=== PATIENT | female | born 1960 | race Caucasian/White ===

== ENCOUNTER → 2016-07-28 | Outpatient (CLI) | payer BC ==
[~2016-07-28] MED LIST: ASP81CT PO; ATR20T PO; GLMP2T PO; HYDR-34 PO; LOSA100T7 PO; METO50TA7 PO; MTF500T PO; NIA500ERT PO; TELM40T PO
--- OUTSIDE RECORDS SUMMARY | 2016-07-28 07:14 | XMS REPORT | Continuity of Care Document ---
Author Author [facility] Organization [facility] Address Unknown Phone Unavailable Allergies Active Description Code Type Severity Reaction Onset Reported/Identified Relationship to Patient Clinical Status Yes No Known Drug Allergies [id number] Drug Allergy Unknown N/ A 03/06/2008 Medications Problems Date Dx Coded Attending Type Code Diagnosis Diagnosed By 10/14/2010 Ot 250.00 10/14/2010 Ot 272.4 10/14/2010 Ot 414.01 10/14/2010 Ot 427.81 10/14/2010 Ot 786.59 10/14/2010 Ot V15.1 10/14/2010 Ot V45.81 10/14/2010 Ot V58.66 10/14/2010 Ot V58.69 10/14/2010 Ot V85.33 11/07/2010 Ot 211.3 11/07/2010 Ot 562.10 11/07/2010 Ot V16.0 11/07/2010 Ot V76.51 06/02/2012 Ot 250.00 DIAB ALTAGRACIA WO COMPL, TYPE II OR UNSPEC TY 06/02/2012 Ot 355.3 LAT POPLITEAL NERVE LES 06/02/2012 Ot 726.91 EXOSTOSIS, SITE NOS 06/04/2014 Ot V76.12 06/04/2014 Ot V76.12 06/04/2014 Ot 414.01 06/04/2014 Ot 786.50 06/04/2014 Ot V58.66 06/04/2014 Ot V58.69 06/04/2014 Ot 715.37 06/04/2014 Ot V76.12 06/04/2014 Ot V76.12 06/04/2014 Ot 727.43 06/04/2014 Ot 733.90 06/04/2014 Ot V72.84 06/04/2014 Ot V74.8 06/04/2014 PHU AJ, REGINA Guerra Ot V76.12 06/04/2014 PHU AJ, REGINA Guerra Ot V76.12 12/25/2014 PHU AJ, REGINA Guerra Ot 793.80 02/05/2015 REGINA BAY MD Ot 793.80 05/26/2015 Ot V76.12 05/26/2015 Ot 414.01 05/26/2015 Ot 786.50 05/26/2015 Ot V58.66 05/26/2015 Ot V58.69 05/26/2015 Ot 715.37 05/26/2015 Ot V76.12 05/26/2015 Ot V76.12 05/26/2015 Ot 727.43 05/26/2015 Ot 733.90 05/26/2015 Ot V72.84 05/26/2015 Ot V74.8 05/26/2015 PHU AJ, REGINA Guerra Ot V76.12 05/26/2015 PHU AJ, REGINA Guerra Ot V76.12 05/26/2015 PHU AJ, REGINA Guerra Ot 793.89 05/26/2015 ANAY AJ FACC, ALI FACP CCDS Ot 250.00 05/26/2015 ANAY AJ FACC, ALI FACP CCDS Ot 272.4 05/26/2015 ANAY AJ FACC, ALI FACP CCDS Ot 414.00 05/26/2015 ANAY AJ FACC, ALI FACP CCDS Ot 427.89 05/26/2015 ANAY AJ FACC, ALI FACP CCDS Ot 433.10 05/26/2015 ANAY AJ FACC, ALI FACP CCDS Ot V58.69 05/26/2015 PHU AJ, REGINA Guerra Ot 793.80 05/26/2015 Ot V76.12 05/26/2015 Ot 414.01 05/26/2015 Ot 786.50 05/26/2015 Ot V58.66 05/26/2015 Ot V58.69 05/26/2015 Ot 715.37 05/26/2015 Ot V76.12 05/26/2015 Ot V76.12 05/26/2015 Ot 727.43 05/26/2015 Ot 733.90 05/26/2015 Ot V72.84 05/26/2015 Ot V74.8 05/26/2015 PHU AJ, REGINA Guerra Ot V76.12 05/26/2015 PHU AJ, REGINA Guerra Ot V76.12 05/26/2015 PHU AJ, REGINA Guerra Ot 793.89 05/26/2015 ANAY AJ FACC, ALI FACP CCDS Ot 250.00 05/26/2015 ANAY AJ FACC, TISHA FACP CCDS Ot 272.4 05/26/2015 ANAY AJ FACC, ALI FACP CCDS Ot 414.00 05/26/2015 ANAY AJ FACC, ALI FACP CCDS Ot 427.89 05/26/2015 ANAY AJ FACC, ALI FACP CCDS Ot 433.10 05/26/2015 ANAY AJ FACC, TISHA FACP CCDS Ot V58.69 05/26/2015 PHU AJ, REGINA Guerra Ot 793.80 06/09/2016 Ot V76.12 OTH SCREEN MAMMO-MALIGN NEOPLASM OF [place] 06/09/2016 Ot V76.12 OTH SCREEN MAMMO-MALIGN NEOPLASM OF [place] 06/09/2016 Ot 727.43 GANGLION NOS 06/09/2016 Ot 733.90 BONE CARTILAGE DIS NOS 06/09/2016 Ot V72.84 EXAM PRE-OPERATIVE NOS 06/09/2016 Ot V74.8 SCREEN-BACTERIAL DIS NEC 06/09/2016 PHU AJ, REGINA Guerra Ot V76.12 OTH SCREEN MAMMO-MALIGN NEOPLASM OF [place] 06/09/2016 REGINA BAY MD Ot V76.12 OTH SCREEN MAMMO-MALIGN NEOPLASM OF [place] 06/09/2016 PHU AJ, REGINA Guerra Ot 793.89 OTH (ABN) FINDINGS ON RADIOLOGICAL EXAMI 06/09/2016 ANAY AJ FACC, TISHA FACP CCDS Ot 250.00 DIAB ALTAGRACIA WO COMPL, TYPE II OR UNSPEC TY 06/09/2016 ANAY AJ FACC, TISHA FACP CCDS Ot 272.4 HYPERLIPIDEMIA NEC/NOS 06/09/2016 ANAY AJ FACC, TISHA FACP CCDS Ot 414.00 CORON ATHEROSCLER NOS TYPE VESSEL, NATIV 06/09/2016 ANAY AJ FACC, ALI FACP CCDS Ot 427.89 CARDIAC DYSRHYTHMIAS NEC 06/09/2016 ANAY AJ FACC, TISHA FACP CCDS Ot 433.10 CAROTID ARTERY OCCLUSION W O CEREBRAL IN 06/09/2016 ANAY AJ FACC, TISHA FACP CCDS Ot V58.69 OTH MED,LT,CURRENT USE 06/09/2016 PHU AJ, REGINA Guerra Ot 793.80 UNSPEC ABNORMAL MAMMOGRAM 07/07/2016 Ot V76.12 OTH SCREEN MAMMO-MALIGN NEOPLASM OF [place] 07/07/2016 Ot V76.12 OTH SCREEN MAMMO-MALIGN NEOPLASM OF [place] 07/07/2016 Ot 727.43 GANGLION NOS 07/07/2016 Ot 733.90 BONE CARTILAGE DIS NOS 07/07/2016 Ot V72.84 EXAM PRE-OPERATIVE NOS 07/07/2016 Ot V74.8 SCREEN-BACTERIAL DIS NEC 07/07/2016 REGINA BAY MD Ot V76.12 OTH SCREEN MAMMO-MALIGN NEOPLASM OF [place] 07/07/2016 REGNIA BAY MD Ot V76.12 OTH SCREEN MAMMO-MALIGN NEOPLASM OF [place] 07/07/2016 REGINA BAY MD Ot 793.89 OTH (ABN) FINDINGS ON RADIOLOGICAL EXAMI 07/07/2016 ANAY AJ FACC, ALI FACP CCDS Ot 250.00 DIAB ALTAGRACIA WO COMPL, TYPE II OR UNSPEC TY 07/07/2016 ANAY AJ FACC, ALI FACP CCDS Ot 272.4 HYPERLIPIDEMIA NEC/NOS 07/07/2016 ANAY AJ FACC, ALI FACP CCDS Ot 414.00 CORON ATHEROSCLER NOS TYPE VESSEL, NATIV 07/07/2016 ANAY AJ FACC, ALI FACP CCDS Ot 427.89 CARDIAC DYSRHYTHMIAS NEC 07/07/2016 ANAY AJ FACC, ALI FACP CCDS Ot 433.10 CAROTID ARTERY OCCLUSION W O CEREBRAL IN 07/07/2016 ANAY AJ FACC, ALI FACP CCDS Ot V58.69 OT MED,LT,CURRENT USE 07/07/2016 REGINA BAY MD Ot 793.80 UNSPEC ABNORMAL MAMMOGRAM 07/28/2016 Ot V76.12 OTH SCREEN MAMMO-MALIGN NEOPLASM OF [place] 07/28/2016 Ot V76.12 OTH SCREEN MAMMO-MALIGN NEOPLASM OF [place] 07/28/2016 Ot 727.43 GANGLION NOS 07/28/2016 Ot 733.90 BONE CARTILAGE DIS NOS 07/28/2016 Ot V72.84 EXAM PRE-OPERATIVE NOS 07/28/2016 Ot V74.8 SCREEN-BACTERIAL DIS NEC 07/28/2016 REGINA BAY MD Ot V76.12 OTH SCREEN MAMMO-MALIGN NEOPLASM OF [place] 07/28/2016 REGINA BAY MD Ot V76.12 OTH SCREEN MAMMO-MALIGN NEOPLASM OF [place] 07/28/2016 REGINA BAY MD Ot 793.89 OTH (ABN) FINDINGS ON RADIOLOGICAL EXAMI 07/28/2016 ANAY AJ FACC, TISHA FACP CCDS Ot 250.00 DIAB ALTAGRACIA WO COMPL, TYPE II OR UNSPEC TY 07/28/2016 ANAY AJ FACC, TISHA FACP CCDS Ot 272.4 HYPERLIPIDEMIA NEC/NOS 07/28/2016 ANAY AJ FACC, ALI FACP CCDS Ot 414.00 CORON ATHEROSCLER NOS TYPE VESSEL, NATIV 07/28/2016 ANAY AJ FACC, ALI FACP CCDS Ot 427.89 CARDIAC DYSRHYTHMIAS NEC 07/28/2016 ANAY AJ FACC, TISHA FACP CCDS Ot 433.10 CAROTID ARTERY OCCLUSION W O CEREBRAL IN 07/28/2016 ANAY AJ FACC, TISHA FACP CCDS Ot V58.69 OT MED,LT,CURRENT USE 07/28/2016 REGINA BAY MD Ot 793.80 UNSPEC ABNORMAL MAMMOGRAM Procedures Results Encounters ACCT No. Visit Date/Time Discharge Status Pt. Type Provider Facility Loc./Unit Complaint [id number] 12/24/2014 07:56:00 2014 23:59:59 CLS Outpatient REGINA BAY MD [facility] RAD 6 MONTH FOLLOW UP [id number] 08/16/2014 07:57:00 2014 23:59:59 CLS Outpatient TISHA CUEVA MD, FACC FACP CCDS [facility] CARD CAD HTN BRADYCARDIA [id number] 06/04/2014 13:25:00 2014 23:59:59 CLS Outpatient REGINA BAY MD [facility] RAD ABNORMAL MAMMO [id number] 05/18/2014 07:27:00 2014 23:59:59 CLS Outpatient REGINA BAY MD [facility] RAD SCREENING [id number] 05/04/2013 07:11:00 2012 23:59:59 CLS Outpatient REGINA BAY MD [facility] RAD SCREENING [id number] 07/28/2016 07:10:00 ACT Outpatient YOLETTE ALVAREZ DO [facility] RAD SCREENING [id number] 06/04/2014 13:25:00 Document Registration [id number] 06/02/2012 06:57:00 Document Registration [id number] 05/30/2012 14:13:00 Document Registration [id number] 05/02/2012 10:40:00 Document Registration [id number] 04/30/2011 08:22:00 Document Registration [id number] 11/21/2010 11:25:00 Document Registration [id number] 11/07/2010 06:51:00 Document Registration [id number] 10/14/2010 08:30:00 Document Registration [id number] 10/09/2010 11:34:00 Document Registration [id number] 04/21/2010 07:56:00 Document Registration [id number] 04/18/2009 07:20:00 Document Registration
--- NOTE | 2016-07-30 17:17 | Diagnostic Imaging Report ---
Bilateral screening mammogram. The current study was also evaluated with a Computer Aided Detection (CAD) system. INDICATION: Screening. No current complaints stated on the questionnaire. COMPARISON: 12/24/2014. FINDINGS: The breasts are composed of scattered fibroglandular densities. Scattered benign-appearing calcifications are seen. In addition, there is a group of mostly coarse calcifications that have developed in the medial aspect of the right breast superiorly. This is also favored to be benign but should be better evaluated with focal magnification views. The left breast demonstrate no definite change. IMPRESSION: Development of a group of calcifications in the medial upper aspect of the right breast. Focal compression magnification views evaluation is recommended. ACR BI-RADS Category 0: Incomplete. (Needs additional imaging evaluation). Result letter will be mailed to the patient. Note: At least 10% of breast cancer is not imaged by mammography. Dictated by: Dictated on workstation # [id number]
== END ==
LOC: RAD 07:10
PROVIDERS: ATTEND Family Medicine
DX: Z12.31 Encounter for screening mammogram for malignant neoplasm of breast (principal)
CPT/HCPCS: 77067

== ENCOUNTER → 2016-08-07 | Outpatient (CLI) | payer BC ==
--- NOTE | 2016-08-07 08:08 | Diagnostic Imaging Report ---
Right breast diagnostic mammogram. CAD is utilized. FINDINGS: Compression magnification views of the new group of calcifications in the medial upper aspect of the right breast are performed. These calcifications have heterogeneous appearance; some are larger and macroscopic type. These are favored to be benign. No soft tissue masses seen. IMPRESSION: Heterogeneous coarse calcifications grouped in the upper medial aspect of the right breast are indeterminate although favored to be benign. Stereotactic biopsy or close followup is suggested based on the low suspicion. The findings and recommendations were discussed with the patient who prefers biopsy over followup exams. BI-RADS 4A. Low suspicion for malignancy. Report was faxed to office of Dr. Bravo @ 8:07 AM/arnel. Dictated by: Dictated on workstation # [id number]
== END ==
LOC: RAD 07:32
PROVIDERS: ATTEND Family Medicine
DX: R92.8 Other abnormal and inconclusive findings on diagnostic imaging of breast (principal)

== ENCOUNTER → 2016-08-11 | Outpatient (CLI) | payer BC ==
[~2016-08-11] VITALS: Ht 162.6 cm; Wt 78.5 kg
[~2016-08-11] MED LIST changes: +LIDOCAINE/EPI 1%-1:100,000 (XYLOCAINE) 20ML INJ ONE; +LIDOCAINE/EPI 1%-1:100,000 (XYLOCAINE) 20ML ONE
--- NOTE | 2016-08-12 08:26 | Diagnostic Imaging Report ---
EXAMINATION: Vacuum-assisted stereotactic breast biopsy , with clip placement, and specimen radiographs. INDICATION: Right breast calcifications . CONSENT: Informed consent was obtained from the patient. The risks, benefits, potential complications and alternatives were reviewed and all questions answered to the patient's satisfaction. PROCEDURE: The patient is positioned on the stereotactic procedure table prone. Prior mammograms were reviewed and based on the position of the calcifications, the appropriate the approach is selected. Initial stereotactic mammographic views at -15 and +15 degrees where performed and confirmation of localization of the lesion is performed. The localization is performed with the stereotactic software assistance and confirmed visually to match the area of interest. After satisfactory localization with initial stereotactic mammographic images, the biopsy tract approach is selected from medial collateral with the skin site determined. After sterile preparation and draping, 1% lidocaine was utilized for local anesthesia. After confirming the targeted calcifications along the medial right breast , multiple vacuum-assisted stereotactic biopsies, with 8-gauge core needles, were performed. The specimen radiograph demonstrates calcifications. Subsequently, a marking clip was placed at the site of the biopsy. Subsequently cc and lateral views mammogram is performed and confirms proper positioning of the clip. The patient tolerated the procedure well with no immediate complications. IMPRESSION: Successful stereotactic vacuum-assisted right breast biopsy for calcifications along the upper medial right breast. A marking clip was left in place. The specimen radiograph demonstrates the calcifications. Dictated by: Dictated on workstation # [id number]
== END ==
LOC: RAD 12:53
PROVIDERS: ATTEND Nurse Practitioner
DX: N63 Unspecified lump in breast (principal)
CPT/HCPCS: 19081; 88305

== ENCOUNTER → 2017-03-09 | Outpatient (CLI) | payer BC ==
[~2017-03-09] VITALS: Ht 160 cm; Wt 83.9 kg
[~2017-03-09] MED LIST changes: +CATHETER FLUSH 10 ML SYR IV PRN; -LIDOCAINE/EPI 1%-1:100,000 (XYLOCAINE) 20ML INJ ONE; -LIDOCAINE/EPI 1%-1:100,000 (XYLOCAINE) 20ML ONE; +REGADENOSON 0.4 MG/5 ML SYR (LEXISCAN) IV ONE
[2017-03-09 09:26] VITALS: BP 135/76
--- NOTE | 2017-03-10 08:00 | STRESS TEST ---
DATE OF SERVICE: 03/09/2017 RESTING AND POST REGADENOSON TECHNETIUM 99M TETROFOSMIN SPECT CT IMAGING ORDERING PHYSICIAN: Dr. Loera. PRIMARY PHYSICIAN: Dr. Bravo. CLINICAL DIAGNOSIS: Coronary artery disease. DESCRIPTION: Baseline images were carried out after injection of 10.11 mCi of technetium-99m Tetrofosmin. This was followed by 0.4 mg regadenoson and 30.6 mCi technetium-99m Tetrofosmin for stress imaging. The electrocardiogram showed sinus rhythm with isolated premature ventricular contractions that were rare. There was mild nonspecific ST abnormality with the regadenoson infusion, which was then returned towards the baseline. The patient did not report any symptoms and tolerated the procedure well. Review of images at rest and following stress does not indicate any significant perfusion defects consistent with significant myocardial ischemia or infarction. Gated images show normal global left ventricular systolic function with normal regional wall motion. Left ventricular ejection fraction is calculated to be 75%. Left ventricular end diastolic volume is 39 mL CONCLUSIONS: 1. No evidence of significant myocardial ischemia or infarction on this study. 2. Normal global left ventricular systolic function with normal regional wall motion and left ventricular ejection fraction of 75%. Job ID: [id number] DocumentID: [id number] Dictated Date: 03/09/2017 14:44:51 Senior Nurse Manager Date: 03/09/2017 21:22:30 Dictated By: TISHA LOERA MD, MA, FACP, FACC,
== END ==
LOC: CARD 07:49
PROVIDERS: ATTEND Internal Medicine Cardiovascular Disease
DX: I25.10 Atherosclerotic heart disease of native coronary artery without angina pectoris (principal); I65.23 Occlusion and stenosis of bilateral carotid arteries; E11.9 Type 2 diabetes mellitus without complications; E78.4 Other hyperlipidemia
CPT/HCPCS: 78452; 93017

== ENCOUNTER 2017-07-08 11:00 | Outpatient (CLI) | payer BC ==
[~2017-07-08] VITALS: Ht 160 cm; Wt 83.9 kg
[~2017-07-08 11:00] MED LIST changes: -CATHETER FLUSH 10 ML SYR IV PRN; -REGADENOSON 0.4 MG/5 ML SYR (LEXISCAN) IV ONE
[2017-07-08] MEDS ORDERED: SITA1TBM7 PO (11:23)
[2017-07-08] MEDS ORDERED: ATOR20TA66 PO (11:23)
[2017-07-08] MEDS ORDERED: METO-370 PO (11:23)
[2017-07-08] MEDS ORDERED: LOSA100T28 PO (11:23)
[2017-07-08] MEDS ORDERED: ASPI-999 PO (11:23)
[2017-07-08] MEDS ORDERED: NIAC500T24 PO (11:23)
== END 2017-07-08 11:19 ==
LOC: PREOP 11:00
PROVIDERS: ATTEND Internal Medicine
DX: Z01.818 Encounter for other preprocedural examination (principal); Z12.11 Encounter for screening for malignant neoplasm of colon

== ENCOUNTER 2017-07-09 07:17 | Day surgery (SDC) | payer BC ==
--- NOTE | 2017-07-05 19:00 | HISTORY AND PHYSICAL ---
DATE OF SERVICE: DATE OF ADMISSION: 07/09/2017 HISTORY OF PRESENT ILLNESS: The patient is a 58-year-old white female referred by Dr. Bravo for screening colonoscopy. She last underwent colonoscopy eight years ago, which revealed one hyperplastic polyp removed from the cecum as well as proximal transverse colon. She is deemed to be a slightly higher than average risk as she did have 1 grandfather diagnosed with colon cancer in his 60s. She reports no change in the family history. She has noted no bright red blood per rectum, melena, bowel habit change or abdominal pain. She has had no interval surgery and no past history of abdominal surgery. PAST MEDICAL HISTORY: Significant for coronary artery disease, is about 12 years out from bypass grafting and has had no problems with acute coronary syndrome since. She has history of hypertension and hyperlipidemia. MEDICATIONS ON ADMISSION: Include losartan 100 mg daily, atorvastatin 20 mg daily, metoprolol 50 mg daily, Janumet XR 100/1000 daily and metformin 1000 mg daily, niacin 500 mg daily and 81 mg aspirin daily. FAMILY HISTORY: Grandfather diagnosed in his 60s of colon cancer, has a father who was diagnosed with prostate cancer in his 70s. There are several family members with a history of colon polyps, but no other family history for colon cancer. PHYSICAL EXAMINATION: GENERAL: Reveals a well appearing white female in no acute distress. 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 Blood pressure 140/76, heart rate was 66 and regular. NECK: Revealed no JVD, adenopathy or bruits. CHEST: Clear. CARDIOVASCULAR: Regular rate and rhythm without murmur, S3 or S4. ABDOMEN: Soft, supple without organomegaly or tenderness. EXTREMITIES: Reveal no cyanosis, clubbing or edema. ASSESSMENT: The patient was set up for screening colonoscopy on 07/09/2017. Prep instructions with Suprep kit were given and questions were answered. I thank you for the referral of this pleasant lady. Job ID: [id number] DocumentID: [id number] Dictated Date: 07/05/2017 11:51:[address] Supervisor Date: 07/05/2017 12:35:48 Dictated By: BRITTANY MARTINI MD
[~2017-07-09] VITALS: Ht 160 cm; Wt 83.9 kg
[~2017-07-09 07:17] MED LIST changes: +ASPI-999 PO; +ATOR20TA66 PO; +LOSA100T28 PO; +METO-370 PO; +NIAC500T24 PO; +SITA1TBM7 PO
[2017-07-09] MEDS ORDERED: 1/2 NS IV SOLUTION 1,000 ML IV STA (07:20)
[2017-07-09] MEDS ORDERED: 1/2 NS IV SOLUTION 1,000 ML IV ONE (07:22)
[2017-07-09] MEDS ORDERED: LIDOCAINE JELLY 2% (XYLOCAINE) 5 ML TUBE MM PRN (07:30)
[2017-07-09 07:44] VITALS: BP 141/88
[2017-07-09] MEDS ORDERED: LIDOCAINE JELLY 2% (XYLOCAINE) 5 ML TUBE ONE (08:28)
[2017-07-09] MEDS ORDERED: fentaNYL INJECTION 100 MCG/2 ML AMP ONE (08:28)
[2017-07-09] MEDS ORDERED: MIDAZOLAM 2 MG/2 ML (VERSED) VIAL ONE ×2 (08:28→08:29)
[2017-07-09] MEDS: fentaNYL INJECTION 100 MCG/2 ML AMP IVP PRN ×2 (08:40→08:45)
[2017-07-09] MEDS: MIDAZOLAM 2 MG/2 ML (VERSED) VIAL IVP PRN ×2 (08:41→08:47)
--- NOTE | 2017-07-09 08:47 | Pre-Op Note & Conscious Sedat ---
Pre-Operative Progress Note H&P Reviewed The H&P was reviewed, patient examined and no changes noted. Date H&P Reviewed: Jul 09, 2017 Time H&P Reviewed: 08:30 Conscious Sedation Pre-Proced ASA Class: 2 Airway Mallampati Classification: ([place] appropriate class) I. II. III, IV Lungs Heart ASA score ASA 1: a normal healthy patient ASA 2: a patient with a mild systemic disease (mid diabetes, controlled hypertension, obesity ASA 3: a patient with a severe systemic disease that limits activity (angina , COPD, prior Myocardial infarction) ASA 4: a patient with an incapacitating disease that is a constant threat to life (CHF, renal failure) ASA 5: a moribund patient not expected to survive 24 hrs. (ruptured aneurysm) ASA 6: a declared brain patient whose organs are being harvested. For emergent operations, add the letter E after the classification Grade 3 Sedation Plan: Analgesia, Amnesia, Plan communicated to team members, Discussed options with patient/fam, Discussed risks with patient/fam Note The patient is an appropriate candidate to undergo the planned procedure, sedation, and anesthesia. The patient immediately re-assessed prior to indication. BRITTANY MARTINI MD Jul 09, 2017 08:47
[2017-07-09 09:25] VITALS: BP 126/78
[2017-07-09 09:49] VITALS: BP 146/79
[2017-07-09 09:50] VITALS: BP 146/79
--- NOTE | 2017-07-09 15:57 | OPERATIVE REPORT ---
DATE OF SERVICE: 07/09/2017 COLONOSCOPY SUMMARY REFERRING PHYSICIAN: Vivian Braov DO. INDICATION FOR THE PROCEDURE: Screening colonoscopy. DESCRIPTION OF PROCEDURE: The patient was placed in the left lateral decubitus position. Prior to undergoing colonoscopy, digital rectal evaluation was performed. Anal sphincter tone was normal. Perianal reflexes intact. No abnormalities were noted on visual inspection of anal canal or distal rectal vault. The colonoscope was then inserted into the rectum and under direct visualization advanced to the cecum. The cecum was identified by identification of the ileocecal valve and cecal strap. Photographic documentation was obtained. Colyte prep was good. The patient tolerated the procedure well. FINDINGS: There was no evidence for internal or external hemorrhoids. Present in the mid rectum are either a confluence of lymphoid follicles versus a flat adenoma. Biopsy and cauterization was performed with no subsequent blood loss. The remainder of the rectum was unremarkable. The sigmoid colon was normal, no diverticulum were noted. The descending colon, splenic flexure, transverse colon, ascending colon were unremarkable. Present in the cecum was a moderate sized diverticulum without evidence for diverticulitis. Photographic documentation was obtained. No other cecal abnormalities were appreciated. ASSESSMENT: Collection lymphoid follicles versus flat adenoma was noted in the mid rectum with subsequent biopsy and cauterization. If this just turns out to be prominent lymphoid follicles, we will advocate consideration for repeat screening colonoscopy in 10 years. One moderate sized cecal diverticulum was present with no other abnormalities being noted on today's procedure. I thank you for the referral of this pleasant lady. Job ID: [id number] DocumentID: [id number] Dictated Date: 07/09/2017 09:24:25 Consulting Psychiatrist Date: 07/09/2017 15:56:20 Dictated By: BRITTANY MARTINI MD
== END 2017-07-09 10:07 | disposition home or self-care (01) ==
LOC: ENDO 07:17
PROVIDERS: ATTEND Internal Medicine
DX: Z12.11 Encounter for screening for malignant neoplasm of colon (principal); K62.1 Rectal polyp; K57.30 Diverticulosis of large intestine without perforation or abscess without bleeding; I25.10 Atherosclerotic heart disease of native coronary artery without angina pectoris; I10 Essential (primary) hypertension; E78.5 Hyperlipidemia, unspecified; Z95.1 Presence of aortocoronary bypass graft; Z79.84 Long term (current) use of oral hypoglycemic drugs; Z79.899 Other long term (current) drug therapy; Z80.0 Family history of malignant neoplasm of digestive organs; Z83.71 Family history of colonic polyps

== ENCOUNTER → 2017-09-20 | Outpatient (CLI) | payer BC ==
--- NOTE | 2017-09-20 17:52 | Diagnostic Imaging Report ---
EXAMINATION: Digital mammogram bilateral screening with 3D tomosynthesis. INDICATION: Screening. COMPARISON: This study was compared to the prior exam of 07/28/2016, 12/24/2014, and 05/18/2014. At this time, there are no current complaints. The current study was also evaluated with a Computer Aided Detection (CAD) system. FINDINGS: There are scattered fibroglandular densities in both breasts, which could obscure a lesion. The prior exam did note a group of coarse calcifications in the medial aspect of the right breast. These calcifications were subsequently biopsied and proved to be benign. The calcifications are no longer evident, but there is now a stereotactic clip in place. The overall appearance of the breasts has not changed significantly otherwise. There is no primary or secondary sign of malignancy noted. The 3D tomographic views also fail to show any sign of malignancy. IMPRESSION: There are post-biopsy changes involving the right breast. There is no evidence for malignancy in either breast. ACR BI-RADS Category 1: Negative. Result letter will be mailed to the patient. Note: At least 10% of breast cancer is not imaged by mammography. Dictated by: Dictated on workstation # [id number]
== END ==
LOC: RAD 07:30
PROVIDERS: ATTEND Family Medicine
DX: Z12.31 Encounter for screening mammogram for malignant neoplasm of breast (principal)
CPT/HCPCS: 77067

== ENCOUNTER → 2018-01-24 | Outpatient (CLI) | payer BC ==
[~2018-01-24] MED LIST changes: -LOSA100T28 PO; +LOSA100T8 PO
--- NOTE | 2018-01-24 13:23 | Diagnostic Imaging Report ---
PROCEDURE: US Non-ob pelvis comp/trans. TECHNIQUE: Multiple realtime grayscale images were obtained of the pelvis in various projections endovaginally. Transabdominal imaging was also performed. INDICATION: Postmenopausal bleeding. FINDINGS: Uterus measures 4.8 x 3.5 x 2.9 cm. No myometrial mass is identified. Endometrium is thin at 2 mm. The ovaries were not visualized. No adnexal mass or free fluid is detected. IMPRESSION: Nonvisualized ovaries. No other significant abnormality is detected. Dictated by: Dictated on workstation # [id number]
== END ==
LOC: RAD 11:46
PROVIDERS: ATTEND Family Medicine
DX: N95.0 Postmenopausal bleeding (principal)
CPT/HCPCS: 76830; 76856

== ENCOUNTER → 2018-10-24 | Outpatient (CLI) | payer BC ==
[~2018-10-24] MED LIST changes: +LOSA100T57 PO; -LOSA100T8 PO
--- NOTE | 2018-10-25 12:06 | Diagnostic Imaging Report ---
EXAMINATION: Digital mammogram bilateral screening with 3D tomosynthesis and CAD. INDICATION: Screening. COMPARISON: This study is compared to the prior exams of 09/20/2017, 07/28/2016, and 05/18/2014. PERSONAL HISTORY: At this time, there are no current complaints. FINDINGS: There are scattered fibroglandular densities in both breasts which could obscure a lesion. Overall, there does not appear to have been any significant change when compared to the prior exam. No primary or secondary sign of malignancy is noted. The stereotactic clip in the right breast seen previously is again evident. IMPRESSION: There is no radiographic evidence for malignancy. ACR BI-RADS Category 1: Negative. Result letter will be mailed to the patient. Note: At least 10% of breast cancer is not imaged by mammography. Dictated by: Dictated on workstation # [id number]
== END ==
LOC: RAD 07:30
PROVIDERS: ATTEND Family Medicine
DX: Z12.31 Encounter for screening mammogram for malignant neoplasm of breast (principal)
CPT/HCPCS: 77067

== ENCOUNTER → 2019-10-27 | Outpatient (CLI) | payer BC ==
[~2019-10-27] MED LIST changes: -METO-370 PO
--- NOTE | 2019-10-27 09:34 | Diagnostic Imaging Report ---
INDICATION: Routine screening. Comparison is made with prior mammogram 10/24/2018 and 09/20/2017. 2-D and 3-D bilateral screening mammography was performed with CAD. Both breasts are heterogeneously dense, limiting the sensitivity of mammography. A slightly nodular density has developed in the lateral aspect of the right breast at mid depth seen on the cc view. There are some calcifications along the margin. A biopsy clip in the right breast is again noted. No other masses are seen. No malignant appearing microcalcifications are identified. Axillae are unremarkable. IMPRESSION: BI-RADS 0 Right breast nodular density. Additional views are recommended for further evaluation. ACR BI-RADS Category 0: Incomplete. (Needs additional imaging evaluation). Result letter will be mailed to the patient. Note: At least 10% of breast cancer is not imaged by mammography. Dictated by: Dictated on workstation # [id number]
== END ==
LOC: RAD 07:15
PROVIDERS: ATTEND Family Medicine
DX: Z12.31 Encounter for screening mammogram for malignant neoplasm of breast (principal); R92.8 Other abnormal and inconclusive findings on diagnostic imaging of breast
CPT/HCPCS: 77063; 77067

== ENCOUNTER → 2019-11-08 | Outpatient (CLI) | payer BC ==
--- NOTE | 2019-11-08 09:57 | Diagnostic Imaging Report ---
INDICATION: Right breast nodule. Patient returns for additional views. Correlation is made with recent screening study from 10/27/2019 and prior mammogram from 2018 and 2019. Unilateral right 2-D and 3-D diagnostic mammography was performed including spot compression CC and MLO views as well as conventional 90 degree lateral view. Additional views show persistent nodular density with peripheral calcification in the outer right breast mid depth approximately 7 cm from the nipple. Further evaluation with ultrasound is recommended. IMPRESSION: BI-RADS 0 Persistent nodular density right breast. Further evaluation with ultrasound is recommended and will be performed today. ACR BI-RADS Category 0: Incomplete. (Needs additional imaging evaluation). Result letter will be mailed to the patient. Note: At least 10% of breast cancer is not imaged by mammography. Dictated by: Dictated on workstation # [id number]
--- NOTE | 2019-11-08 11:08 | Diagnostic Imaging Report ---
INDICATION: Right breast density. COMPARISON: Correlation is made with the diagnostic mammogram from earlier this same day as well as the screening mammogram from 10/27/2019. FINDINGS: Sonographic interrogation of the slightly outer right breast at the 9-10 o'clock location was performed. No sonographic abnormality is seen. No solid or cystic mass is detected. IMPRESSION: No sonographic abnormality is identified. Even so, there is a somewhat nodular density in the right breast which was not present on the prior mammograms. This is slightly irregular. Tissue sampling would be recommended. This would be amenable to a stereotactic biopsy approach. The findings and recommendations were discussed with the patient at the time of this exam. ACR BI-RADS Category 4: Suspicious abnormality. Dictated by: Dictated on workstation # [id number]
== END ==
LOC: RAD 08:52
PROVIDERS: ATTEND Family Medicine
DX: N63.10 Unspecified lump in the right breast, unspecified quadrant (principal); R92.2 Inconclusive mammogram; R92.8 Other abnormal and inconclusive findings on diagnostic imaging of breast
CPT/HCPCS: 76642; 77065; G0279

== ENCOUNTER → 2019-11-15 | Outpatient (CLI) | payer BC ==
[~2019-11-15] VITALS: Ht 160 cm; Wt 75.0 kg
[~2019-11-15] MED LIST changes: +LIDOCAINE 1% INJ 20 ML 20 ML VIAL INJ ONE; +LIDOCAINE 1% INJ 20 ML 20 ML VIAL ONE
--- NOTE | 2019-11-15 14:33 | Diagnostic Imaging Report ---
INDICATION: Right breast density. Patient presents for stereotactic biopsy. DETAILS OF THE PROCEDURE: The patient was brought to the stereotactic suite and placed in a chair in the sitting upright position. The right breast was positioned lateral medial. The focal density with adjacent calcification was stereotactically targeted. The lateral right breast was then prepped and draped in the usual sterile fashion. A small amount of 1% lidocaine was utilized for local anesthesia. An 8 gauge needle was advanced into the right breast from a lateral medial approach and placed with its tip per stereotactic coordinates. A total of 4 core biopsies was obtained with the 8 gauge vacuum-assisted device. A specimen radiograph was obtained demonstrating calcifications within the sample as well as a slightly nodular density in sample labeled #5. A marker clip was deployed. Hemostasis was obtained using manual compression. 2D CC and LM mammography was then performed. The mammography images demonstrate post biopsy changes with a marker clip in the central slightly outer right breast. The Pathology results are currently pending. All images were viewed on a dedicated workstation. IMPRESSION: Stereotactic biopsy of a right breast density utilizing a dedicated vacuum assisted device. The Pathology results are currently pending. Dictated by: Dictated on workstation # [id number]
== END ==
LOC: RAD 12:16
PROVIDERS: ATTEND Family Medicine
DX: R92.2 Inconclusive mammogram (principal)
CPT/HCPCS: 19081; A4648; 88305

== ENCOUNTER → 2020-05-30 | Outpatient (CLI) | payer BC ==
[~2020-05-30] MED LIST changes: -LIDOCAINE 1% INJ 20 ML 20 ML VIAL INJ ONE; -LIDOCAINE 1% INJ 20 ML 20 ML VIAL ONE
--- NOTE | 2020-05-30 11:04 | Diagnostic Imaging Report ---
PROCEDURE: US Thyroid. TECHNIQUE: Multiple real-time grayscale images were obtained of the thyroid in various projections. INDICATION: Thyroid nodules. There are no prior studies available for comparison. The thyroid gland, particularly the right lobe is prominent. The right lobe measures 5.2 x 1.9 x 2.1 cm while the left lobe is estimated to be 4.5 x 1.8 x approximately 2 cm (normal gland size 4-5 x 2 x 2 cm or less). Each lobe of the thyroid has a heterogeneous appearance and there are multiple nodules of varying size in each lobe. All these nodules measure less than 1 cm with the exception of a solid partially calcified nodule in the midportion of the right lobe. This measures 1.1 x 0.8 x 0.7 cm. This nodule has a generally benign appearance and may represent TI-RADS 3. IMPRESSION: 1. The thyroid gland is prominent and there are multiple nodules of varying sizes in both lobes. These findings are most likely related to a multinodular goiter. 2. The 1.1 x 0.8 x 0.7 cm solid nodule in the right lobe is most likely a benign process. If further study is desired, then a short-term (6 month) follow-up thyroid ultrasound exam would be recommended. Dictated by: Dictated on workstation # [id number]
--- NOTE | 2020-05-30 14:00 | Diagnostic Imaging Report ---
Unilateral diagnostic right mammogram INDICATION: Post-stereotactic biopsy check COMPARISON: This study was compared to the prior exams of 10/27/2019, 10/24/2018, 09/20/2017 and 07/28/2016. At this time, there are no current complaints. The previous diagnostic mammogram and ultrasound exam of 11/08/2019 noted a small nodular density with peripheral calcification in the outer aspect of the right breast. This area was subsequently biopsied using a stereotactic device on 11/15/2019. The results of the biopsy failed to show any sign of malignancy. On this exam, the density in question is smaller. There is a small asymmetry in this area which is probably secondary to scar formation. There is a stereotactic clip in the biopsy site. The overall appearance of the right breast has not changed significantly otherwise. There is no primary or secondary sign of malignancy noted. The stereotactic clip in the upper inner aspect of the right breast seen previously is again visualized. IMPRESSION: 1. The post biopsy changes involving the right breast appear stable. There is no evidence for malignancy. 2. The patient should have her annual bilateral screening mammogram on schedule in October of this year. ACR category 2 ACR BI-RADS Category 2: Benign findings. Result letter will be mailed to the patient. Note: At least 10% of breast cancer is not imaged by mammography. Dictated by: Dictated on workstation # [id number]
== END ==
LOC: RAD 08:54
PROVIDERS: ATTEND Family Medicine
DX: E04.2 Nontoxic multinodular goiter (principal); N63.10 Unspecified lump in the right breast, unspecified quadrant
CPT/HCPCS: 76536; 77065; G0279

== ENCOUNTER → 2020-11-04 | Outpatient (CLI) | payer BC ==
--- NOTE | 2020-11-04 11:12 | Diagnostic Imaging Report ---
INDICATION: Routine screening. Comparison is made with prior mammogram from 10/27/2019 and 10/24/2018. 2-D and 3-D bilateral screening mammography was performed with CAD. Both breasts are heterogeneously dense, limiting the sensitivity of mammography. A biopsy clip in the central and medial right breast again noted. There are scattered benign calcifications in both breasts. No mass or malignant appearing microcalcifications are seen. Axillae are unremarkable. IMPRESSION: BI-RADS Category 2 No mammographic features suspicious for malignancy are identified. ACR BI-RADS Category 2: Benign findings. Result letter will be mailed to the patient. Note: At least 10% of breast cancer is not imaged by mammography. Dictated by: Dictated on workstation # [id number]
== END ==
LOC: RAD 08:58
PROVIDERS: ATTEND Family Medicine
DX: Z12.31 Encounter for screening mammogram for malignant neoplasm of breast (principal)
CPT/HCPCS: 77063; 77067

== ENCOUNTER → 2020-11-04 | Outpatient (CLI) | payer BC | LOC: CARD 08:30 | PROVIDERS: ATTEND Nurse Practitioner Family | DX: I34.0 Nonrheumatic mitral (valve) insufficiency (principal); I25.10 Atherosclerotic heart disease of native coronary artery without angina pectoris | CPT/HCPCS: 93306 ==

== ENCOUNTER → 2020-11-12 | Outpatient (CLI) | payer BC ==
[~2020-11-12] MED LIST changes: +CATHETER FLUSH 10 ML SYR IV PRN; +REGADENOSON 0.4 MG/5 ML SYR (LEXISCAN) IV ONE
[2020-11-12 09:24] VITALS: BP 146/77
--- NOTE | 2020-11-12 22:25 | STRESS TEST ---
DATE OF SERVICE: 11/12/2020 RESTING AND POST REGADENOSON TECHNETIUM-99M TETROFOSMIN SPECT CT IMAGING ORDERING PHYSICIAN: Ashley Santos APRN PRIMARY PHYSICIAN: Dr. Bravo. CLINICAL DIAGNOSES: Coronary artery disease. Baseline images were carried out after injection of 10.97 mCi of technetium-99m Tetrofosmin. This was followed by 0.4 mg regadenoson and 29.6 mCi of technetium-99m Tetrofosmin for stress imaging. The electrocardiogram showed sinus rhythm with premature atrial contractions. There is nonspecific ST and T-wave abnormality. The electrocardiogram did not change significantly with regadenoson infusion. The patient tolerated the procedure well. Review of images at rest and following stress does not indicate any distinct perfusion defects consistent with significant myocardial ischemia or infarction. Gated images show normal global left ventricular systolic function with normal regional wall motion. Left ventricular ejection fraction is calculated to be 75%. Left ventricular end diastolic volume is 29 mL. TID is absent (1.09). CONCLUSIONS: 1. No evidence of any significant myocardial ischemia or infarction on this study. 2. Normal regional wall motion. 3. Normal global left ventricular systolic function with a calculated ejection fraction of 75%. Job ID: [id number] DocumentID: [id number] Dictated Date: 11/12/2020 20:19:19 Drencher Date: 11/12/2020 22:24:06 Dictated By: TISHA CUEVA MD, MA, FACP, FACC,
== END ==
LOC: CARD 07:32
PROVIDERS: ATTEND Nurse Practitioner Family
DX: I25.10 Atherosclerotic heart disease of native coronary artery without angina pectoris (principal)
CPT/HCPCS: 78452; 93017; A9502

== ENCOUNTER → 2020-12-02 | Outpatient (CLI) | payer BC ==
[~2020-12-02] MED LIST changes: -CATHETER FLUSH 10 ML SYR IV PRN; -REGADENOSON 0.4 MG/5 ML SYR (LEXISCAN) IV ONE
--- NOTE | 2020-12-02 13:22 | Diagnostic Imaging Report ---
PROCEDURE: US Thyroid. TECHNIQUE: Multiple real-time grayscale images were obtained of the thyroid in various projections. INDICATION: Thyroid nodules. Right thyroid lobe measured 5.8 x 2.4 x 1.7 cm unchanged in size from previous exam. A mixed solid cystic nodule in the mid to lower pole of the right thyroid lobe measured 1.2 cm long axis and is unchanged. A predominantly cystic nodule of about 9 mm in the upper pole unchanged. The left thyroid lobe measured 4.0 x 1.4 x 1.3 cm unchanged. The largest left lobe nodule measured 1 cm unchanged. IMPRESSION: Heterogeneous multinodular thyroid, with larger masses unchanged in size from prior and these lesions largely cystic in composition favored to be degenerated adenomas in the setting of multinodular goiter. No new or suspicious thyroidal mass. Dictated by: Dictated on workstation # [id number]
== END ==
LOC: RAD 12:30
PROVIDERS: ATTEND Family Medicine
DX: E04.2 Nontoxic multinodular goiter (principal)
CPT/HCPCS: 76536

== ENCOUNTER 2021-01-02 19:07 | Emergency (ER) | payer BC ==
[~2021-01-02] VITALS: Ht 160 cm; Wt 76.2 kg
--- NOTE | 2021-01-02 19:44 | ED Cardiac General ---
History of Present Illness General Stated Complaint: HIGH BLOOD PRESSURE, DIZZINESS, NAUSEA History of Present Illness Date Seen by Provider: Jan 02, 2021 Time Seen by Provider: 19:25 Initial Comments 60-year-old female presents for hypertension and dizziness. She reports coming home from work at approximately 1700 and not feeling good, she had some mild nausea. She checked her blood pressure and it ranged from 190-160/120-100, which is abnormal for her. She is on 2 B/P medications. She denies chest pain or SOA, no further nausea. She had a CABG in 2007 and had echo/heart cath this year by Dr. Loera. She received 2 doses of COVID vaccine spring 2020. 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: No ASA po LEAD BURNER APPRENTICE: No Associated Systoms: No Chest Pain, No Cough, No Diaphoresis, No Fever/Chills, No Headaches, No Loss of Appetite, No Malaise, No Nausea/Vomiting, No Rash, No Seizure, No Shortness of Air, No Syncope, No Weakness Allergies and Home Medications Allergies Coded Allergies: No Known Drug Allergies (Unverified , 07/08/17) Home Medications Atorvastatin Calcium 20 Mg Tablet, 20 MG PO HS, (Reported) Losartan Potassium 100 Mg Tablet, 100 MG PO DAILY, (Reported) Metoprolol Succinate 50 Mg Tab.er.24h, 50 MG PO DAILY, (Reported) Niacinamide 500 Mg Tablet, 500 MG PO DAILY, (Reported) Sitagliptin Phos/Metformin HCl 1 Each Tbmp.24hr, 1 EACH PO DAILY, (Reported) Patient Home Medication List Home Medication List Reviewed: Yes Review of Systems Review of Systems Constitutional: no symptoms reported, see HPI Cardiovascular: See HPI; Denies Chest Pain Gastrointestinal: No Symptoms Reported, See HPI, Nausea (Prior to arrival, improved now) Psychiatric/Neurological: No Symptoms Reported, See HPI; Denies Headache All Other Systems Reviewed Negative Unless Noted: Yes Past Jjgaeuj-Ytnmqw-Oggjtt Hx Immunizations Up To Date Tetanus Booster (TDap): Unknown Seasonal Allergies Seasonal Allergies: No Past Medical History Currently Using CPAP: No Currently Using BIPAP: No High Cholesterol, Hypertension Reproductive Disorders: No Female Reproductive Disorders: Denies Sexually Transmitted Disease: No HIV/AIDS: No Adverse Reaction/Blood Tranf: No Family Medical History Reviewed Nursing Family Hx Physical Exam Vital Signs Capillary Refill : Height, Weight, BMI Height: 5'3.00" Weight: 185lbs. 0.0oz. 83.388902gn; 29.29 BMI Method: General Appearance: No Apparent Distress, WD/WN Neck: Full Range of Motion, Normal Inspection, Non Tender, Supple Respiratory: Chest Non Tender, Lungs Clear, Normal Breath Sounds Cardiovascular: Regular Rate, Rhythm, No Edema, No Murmur, Normal Peripheral Pulses Gastrointestinal: Normal Bowel Sounds, Non Tender, Soft Extremity: Normal Capillary Refill, Normal Inspection, Normal Range of Motion, Non Tender, No Calf Tenderness, No Pedal Edema Neurologic/Psychiatric: Alert, Oriented x3, No Motor/Sensory Deficits, Normal Mood/Affect Skin: Normal Color, Warm/Dry Progress/Results/Core Measures Results/Orders Lab Results Laboratory Tests Test 01/02/21 19:30 Range/Units White Blood Count 7.2 4.3-11.0 10^3/uL Red Blood Count 4.96 3.80-5.11 10^6/uL Hemoglobin 14.2 11.5-16.0 g/dL Hematocrit 42 35-52 % Mean Corpuscular Volume 85 80-99 fL Mean Corpuscular Hemoglobin 29 25-34 pg Mean Corpuscular Hemoglobin Concent 34 32-36 g/dL Red Cell Distribution Width 12.9 10.0-14.5 % Platelet Count 217 130-400 10^3/uL Mean Platelet Volume 10.6 9.0-12.2 fL Immature Granulocyte % (Auto) 0 % Neutrophils (%) (Auto) 63 42-75 % Lymphocytes (%) (Auto) 25 12-44 % Monocytes (%) (Auto) 9 0-12 % Eosinophils (%) (Auto) 3 0-10 % Basophils (%) (Auto) 0 0-10 % Neutrophils # (Auto) 4.5 1.8-7.8 10^3/uL Lymphocytes # (Auto) 1.8 1.0-4.0 10^3/uL Monocytes # (Auto) 0.6 0.0-1.0 10^3/uL Eosinophils # (Auto) 0.2 0.0-0.3 10^3/uL Basophils # (Auto) 0.0 0.0-0.1 10^3/uL Immature Granulocyte # (Auto) 0.0 0.0-0.1 10^3/uL Prothrombin Time 13.1 12.2-14.7 SEC INR Comment 1.0 0.8-1.4 Activated Partial Thromboplast Time 23 L 24-35 SEC Sodium Level 139 135-145 MMOL/L Potassium Level 3.5 L 3.6-5.0 MMOL/L Chloride Level 100 98-107 MMOL/L Carbon Dioxide Level 26 21-32 MMOL/L Anion Gap 13 5-14 MMOL/L Blood Urea Nitrogen 10 7-18 MG/DL Creatinine 0.89 0.60-1.30 MG/DL Estimat Glomerular Filtration Rate 64 BUN/Creatinine Ratio 11 Glucose Level 159 H 70-105 MG/DL Calcium Level 9.8 8.5-10.1 MG/DL Corrected Calcium 9.7 8.5-10.1 MG/DL Magnesium Level 1.9 1.6-2.4 MG/DL Total Bilirubin 0.4 0.1-1.0 MG/DL Aspartate Amino Transf (AST/SGOT) 26 5-34 U/L Alanine Aminotransferase (ALT/SGPT) 42 0-55 U/L Alkaline Phosphatase 66 40-136 U/L Myoglobin 31.8 10.0-92.0 NG/ML Troponin I < 0.028 <0.028 NG/ML Total Protein 7.4 6.4-8.2 GM/DL Albumin 4.1 3.2-4.5 GM/DL My Orders Orders - LA KNIGHT Cbc With Automated Diff (01/02/21 19:32) Magnesium (01/02/21 19:32) Chest 1 View, Ap/Pa Only (01/02/21 19:32) Ekg Tracing (01/02/21 19:32) Comprehensive Metabolic Panel (01/02/21 19:32) Myoglobin Serum (01/02/21 19:32) Protime With Inr (01/02/21 19:32) Partial Thromboplastin Time (01/02/21 19:32) O2 (01/02/21 19:32) Monitor-Rhythm Ecg Trace Only (01/02/21 19:32) Ed Iv/Invasive Line Start (01/02/21 19:32) Troponin I (01/02/21 19:32) Aspirin Chewable Tablet (Baby Aspirin Ch (01/02/21 19:45) Hydralazine Injection (Apresoline Inject (01/02/21 20:15) Medications Given in ED Current Medications Medications Dose Ordered Sig/Ruma Route Start Time Stop Time Status Last Admin Dose Admin Aspirin 324 mg ONCE ONCE PO 01/02/21 19:45 01/02/21 19:46 DC 01/02/21 19:46 324 MG Progress Progress Note : Time: 19:25 Progress Note Patient seen and evaluated, will obtain chest x-ray, EKG, aspirin 324 mg orally and labs. 2004 B/P down to 140/90, will monitor before medicating. No chest pain, labs pending. 2049 B/P 134/68, no complaints. Labs negative. No complaints. Discharge instructions and return precautions reviewed with the patient. Initial ECG Impression Date: Jan 02, 2021 Initial ECG Impression Time: 19:37 Initial ECG Rate: 57 Initial ECG Rhythm: Normal Sinus Initial ECG Intervals: Normal Initial ECG Intervals WI 172, QRSD 114, QT 434, QTc 423. [place] P8, QRS 30, T- 6. Initial ECG Impression: Normal Initial ECG Comparisson: Unchanged Diagnostic Imaging Diagonstic Imaging: Xray Plain Films/CT/US/NM/MRI: chest Comments NAME: VIMAL MIKE [facility] REC#: [id number] PT STATUS: REG ER : 1960 PHYSICIAN: LA KNIGHT ADMIT DATE: 01/02/21/ER Signed Date of Exam:01/02/21 CHEST 1 VIEW, AP/PA ONLY INDICATION: Chest pain and hypertension. EXAMINATION: Portable chest at 7:49 PM. There are postoperative changes from CABG surgery. Heart size and pulmonary vascularity are normal. Lungs are clear. There is no effusion or pneumothorax. IMPRESSION: Postsurgical changes in the chest. No acute abnormality is seen. Dictated by: Dictated on workstation # [id number] Dict: 01/02/211947 Trans: 01/02/211953 [id number] Interpreted by: ANGELINA NARAYAN MD Electronically signed by: ANGELINA NARAYAN MD 01/02/211953 Reviewed: Reviewed by Me Departure Impression Primary Impression: Hypertension Qualified Codes: I10 - Essential (primary) hypertension Disposition: 01 HOME, SELF-CARE Condition: Improved Departure-Patient Inst. Decision time for Depature: 20:40 Referrals: YOLETTE BRAVO DO (PCP/Family) Primary Care Physician Patient Instructions: High Blood Pressure (DC) Add. Discharge Instructions: Continue home medications. Follow-up with Dr. Bravo if symptoms are not improving or worsen. Return to the emergency department for persistent hypertension or chest pain. If blood pressure is found to be elevated, drink 16 ounces of water and lie down before checking it again in approximately 20 to 30 minutes. Copy Copies To 1: YOLETTE BRAVO [facility] Jan 02, 2021 19:44
[2021-01-02] MEDS ORDERED: ASPIRIN 81 MG CHEW (CHILDREN'S ASA) PO ONE (19:45)
[2021-01-02 19:49] LABS: BASOPHILS % (AUTO) 0 % (0-10); EOSINOPHILS # (AUTO) 0.2 10^3/uL (0.0-0.3); EOSINOPHILS % (AUTO) 3 % (0-10); HEMATOCRIT 42 % (35-52); HEMOGLOBIN 14.2 g/dL (11.5-16.0); LYMPHOCYTES # (AUTO) 1.8 10^3/uL (1.0-4.0); LYMPHOCYTES % (AUTO) 25 % (12-44); MEAN CORPUSCULAR HEMOGLOBIN 29 pg (25-34); MEAN CORPUSCULAR HGB CONC 34 g/dL (32-36); MEAN CORPUSCULAR VOLUME 85 fL (80-99); MEAN PLATELET VOLUME 10.6 fL (9.0-12.2); MONOCYTES # (AUTO) 0.6 10^3/uL (0.0-1.0); MONOCYTES % (AUTO) 9 % (0-12); NEUTROPHILS # (AUTO) 4.5 10^3/uL (1.8-7.8); NEUTROPHILS % (AUTO) 63 % (42-75); PLATELET COUNT 217 10^3/uL (130-400); WHITE BLOOD COUNT 7.2 10^3/uL (4.3-11.0)
--- NOTE | 2021-01-02 19:51 | Diagnostic Imaging Report ---
INDICATION: Chest pain and hypertension. EXAMINATION: Portable chest at 7:49 PM. There are postoperative changes from CABG surgery. Heart size and pulmonary vascularity are normal. Lungs are clear. There is no effusion or pneumothorax. IMPRESSION: Postsurgical changes in the chest. No acute abnormality is seen. Dictated by: Dictated on workstation # [id number]
[2021-01-02 20:08] LABS: PROTHROMBIN TIME PATIENT 13.1 SEC (12.2-14.7)
[2021-01-02] MEDS ORDERED: hydrALAZINE (APESOLINE) 20 MG/ML VIAL IV ONE (20:15)
[2021-01-02 20:17] LABS: ALBUMIN 4.1 GM/DL (3.2-4.5); BILIRUBIN,TOTAL 0.4 MG/DL (0.1-1.0); CALCIUM 9.8 MG/DL (8.5-10.1); CREATININE SERUM 0.89 MG/DL (0.60-1.30); MAGNESIUM 1.9 MG/DL (1.6-2.4); POTASSIUM 3.5 MMOL/L (3.6-5.0); TOTAL PROTEIN 7.4 GM/DL (6.4-8.2)
[2021-01-02 21:20] VITALS: BP 145/79
== END 2021-01-02 21:20 | disposition home or self-care (01) ==
LOC: EDUNIT# 19:07 → ER 19:10
DX: I10 Essential (primary) hypertension (principal); E78.00 Pure hypercholesterolemia, unspecified; Z79.899 Other long term (current) drug therapy; Z95.1 Presence of aortocoronary bypass graft; Z95.9 Presence of cardiac and vascular implant and graft, unspecified
CPT/HCPCS: 36415; 71045; 80053; 83735; 83874; 84484; 85025; 85610; 85730; 93005; 93041

== ENCOUNTER → 2021-11-05 | Outpatient (CLI) | payer BC ==
--- NOTE | 2021-11-05 11:03 | Diagnostic Imaging Report ---
INDICATION: Routine screening. COMPARISON: 11/04/2020 and 10/27/2019. TECHNIQUE: 2D and 3D bilateral screening mammography was performed with CAD. FINDINGS: Scattered fibroglandular densities are identified bilaterally. Biopsy clips in the right breast are again noted. Benign calcifications in both breasts are noted. No dominant mass or malignant-appearing microcalcifications are seen. The axillae are unremarkable. IMPRESSION: No mammographic features suspicious for malignancy are identified. ACR BI-RADS Category 2: Benign findings. Result letter will be mailed to the patient. Note: At least 10% of breast cancer is not imaged by mammography. Dictated by: Dictated on workstation # [id number]
== END ==
LOC: RAD 07:30
PROVIDERS: ATTEND Family Medicine
DX: Z12.31 Encounter for screening mammogram for malignant neoplasm of breast (principal)
CPT/HCPCS: 77063; 77067

== ENCOUNTER 2021-12-25 13:54 | Emergency (ER) | payer BC ==
[~2021-12-25] VITALS: Ht 162 cm; Wt 77.0 kg
--- NOTE | 2021-12-25 14:25 | ED Cardiac General ---
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 PT DOES HAVE CARDIAC HX, CALLED [employer]GE, INSTRUCTED TO GO TO ER FOR FURTHER EVAL. Source: patient Exam Limitations: no limitations History of Present Illness Date Seen by Provider: Dec 25, 2021 Time Seen by Provider: 14:23 Initial Comments Patient is a 61-year-old female who presents to the ED with left-sided arm pain. This started around 1115. She states the pain started in her left shoulder and has migrated down to her left hand. Starting to have some pins and needle sensation into her left digits. Denies any trauma. Pain is rated 5 out of 10. She has no headache, dizziness, visual changes, facial droop, vomiting, nausea, shortness of breath, cough. Denies history similar pain in the past. History of coronary artery disease with cardiac bypass. Not currently on blood thinners. Currently being managed by Dr. Loera. She does have a history of hypertension, high diabetes, high cholesterol. Denies any urinary symptoms. 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 Allergies and Home Medications Allergies Coded Allergies: No Known Drug Allergies (Unverified , 07/08/17) Patient Home Medication List Home Medication List Reviewed: Yes Atorvastatin Calcium (Atorvastatin Calcium) 20 Mg Tablet, 20 MG PO HS, (Reported) Entered as Reported by: PAM ROBERTS on 07/08/17 1123 Losartan Potassium (Losartan Potassium) 100 Mg Tablet, 100 MG PO DAILY, (Reported) Entered as Reported by: PAM ROBERTS on 07/08/17 1123 Metoprolol Succinate (Metoprolol Succinate) 50 Mg Tab.er.24h, 50 MG PO DAILY, (Reported) Entered as Reported by: PAM ROBERTS on 07/08/17 112 Niacinamide (Niacin) 500 Mg Tablet, 500 MG PO DAILY, (Reported) Entered as Reported by: PAM ROBERTS on 07/08/17 1123 Sitagliptin Phos/Metformin HCl (Janumet Xr 100-1,000 mg Tablet) 1 Each Tbmp.24hr, 1 EACH PO DAILY, (Reported) Entered as Reported by: PAM ROBERTS on 07/08/17 1123 Review of Systems Review of Systems Constitutional: No chills, No diaphoresis, No malaise EENTM: No Blurred Vision, No Double Vision, No Eye Pain, No Ear Pain, No Mouth Swelling Respiratory: Denies Cough, Denies Orthopnea Gastrointestinal: Denies Abdominal Pain, Denies Constipated, Denies Diarrhea, Denies Nausea, Denies Vomiting Genitourinary: Denies Burning, Denies Discharge Musculoskeletal: No back pain, No joint pain, No joint swelling, No muscle pain Skin: No change in color, No change in hair/nails All Other Systems Reviewed Negative Unless Noted: Yes Past Iqupocw-Dobxrg-Rufrvc Hx Patient Social History Tobacco Use?: No Use of E-Cig and/or Vaping dev: No Substance use?: No Alcohol Use?: No Pt feels they are or have been: No Immunizations Up To Date Tetanus Booster (TDap): Unknown First/Initial COVID19 Vaccinat: RECEIVED, UNK WHEN Second COVID19 Vaccination Feng: RECEIVED, UNK WHEN Third COVID19 Vaccination Date: RECEIVED, UNK WHEN COVID19 Vaccine Case Consultant: BOOSTER Seasonal Allergies Seasonal Allergies: No Past Medical History Surgery/Hospitalization HX: CABG 2007 Currently Using CPAP: No Currently Using BIPAP: No High Cholesterol, Hypertension Reproductive Disorders: No Female Reproductive Disorders: Denies Sexually Transmitted Disease: No HIV/AIDS: No Adverse Reaction/Blood Tranf: No Physical Exam Vital Signs Vital Signs - First Documented 12/25/21 13:59 Temp 36.8 Pulse 69 Resp 18 B/P (MAP) 163/96 (118) Pulse Ox 98 O2 Delivery Room Air Capillary Refill : Height, Weight, BMI Height: 5'3.00" Weight: 185lbs. 0.0oz. 83.180853jy; 29.00 BMI Method: General Appearance: No Apparent Distress, WD/WN HEENT: PERRL/EOMI, TMs Normal, Normal ENT Inspection, Pharynx Normal Neck: Full Range of Motion, Normal Inspection, Non Tender, Supple Respiratory: Chest Non Tender, Lungs Clear, Normal Breath Sounds, No Accessory Muscle Use, No Respiratory Distress Cardiovascular: Regular Rate, Rhythm, No Edema, No Gallop, No JVD Gastrointestinal: Normal Bowel Sounds, No Organomegaly, No Pulsatile Mass, Non Tender Extremity: Normal Capillary Refill, Normal Inspection, Normal Range of Motion, Non Tender, No Calf Tenderness Neurologic/Psychiatric: Alert, Oriented x3, No Motor/Sensory Deficits, Normal Mood/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, 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 as Tested Skin: Normal Color Progress/Results/Core Measures Results/Orders Lab Results Laboratory Tests Test 12/25/21 14:09 12/25/21 16:40 Range/Units White Blood Count 7.1 4.3-11.0 10^3/uL Red Blood Count 5.13 H 3.80-5.11 10^6/uL Hemoglobin 14.5 11.5-16.0 g/dL Hematocrit 43 35-52 % Mean Corpuscular Volume 84 80-99 fL Mean Corpuscular Hemoglobin 28 25-34 pg Mean Corpuscular Hemoglobin Concent 34 32-36 g/dL Red Cell Distribution Width 12.7 10.0-14.5 % Platelet Count 217 130-400 10^3/uL Mean Platelet Volume 11.4 9.0-12.2 fL Immature Granulocyte % (Auto) 0 % Neutrophils (%) (Auto) 72 42-75 % Lymphocytes (%) (Auto) 18 12-44 % Monocytes (%) (Auto) 7 0-12 % Eosinophils (%) (Auto) 2 0-10 % Basophils (%) (Auto) 1 0-10 % Neutrophils # (Auto) 5.1 1.8-7.8 10^3/uL Lymphocytes # (Auto) 1.3 1.0-4.0 10^3/uL Monocytes # (Auto) 0.5 0.0-1.0 10^3/uL Eosinophils # (Auto) 0.2 0.0-0.3 10^3/uL Basophils # (Auto) 0.1 0.0-0.1 10^3/uL Immature Granulocyte # (Auto) 0.0 0.0-0.1 10^3/uL Prothrombin Time 12.2 12.2-14.7 SEC INR Comment 0.9 0.8-1.4 Activated Partial Thromboplast Time 24 24-35 SEC Sodium Level 142 135-145 MMOL/L Potassium Level 3.9 3.6-5.0 MMOL/L Chloride Level 103 98-107 MMOL/L Carbon Dioxide Level 23 21-32 MMOL/L Anion Gap 16 H 5-14 MMOL/L Blood Urea Nitrogen 11 7-18 MG/DL Creatinine 0.95 0.60-1.30 MG/DL Estimat Glomerular Filtration Rate 68 BUN/Creatinine Ratio 12 Glucose Level 181 H 70-105 MG/DL Calcium Level 9.9 8.5-10.1 MG/DL Corrected Calcium 9.7 8.5-10.1 MG/DL Magnesium Level 1.7 1.6-2.4 MG/DL Total Bilirubin 0.5 0.1-1.0 MG/DL Aspartate Amino Transf (AST/SGOT) 32 5-34 U/L Alanine Aminotransferase (ALT/SGPT) 45 0-55 U/L Alkaline Phosphatase 64 40-136 U/L Myoglobin 37.3 10.0-92.0 NG/ML Troponin I < 0.028 < 0.028 <0.028 NG/ML B-Type Natriuretic Peptide 45.4 <100.0 PG/ML Total Protein 7.3 6.4-8.2 GM/DL Albumin 4.2 3.2-4.5 GM/DL My Orders Orders - GALILEO SILVA PA Cbc With Automated Diff (12/25/21 14:22) Magnesium (12/25/21 14:22) Chest 1 View, Ap/Pa Only (12/25/21 14:22) Ekg Tracing (12/25/21 14:22) Comprehensive Metabolic Panel (12/25/21 14:22) Myoglobin Serum (12/25/21 14:22) Protime With Inr (12/25/21 14:22) Partial Thromboplastin Time (12/25/21 14:22) Monitor-Rhythm Ecg Trace Only (12/25/21 14:22) Ed Iv/Invasive Line Start (12/25/21 14:22) Bnp [place] (12/25/21 14:22) Troponin I Shaheed (12/25/21 14:22) Aspirin Chewable Tablet (Baby Aspirin Ch (12/25/21 14:30) Troponin I Shaheed (12/25/21 17:40) Medications Given in ED Vital Signs/I&O 12/25/21 12/25/21 12/25/21 12/25/21 13:59 16:04 17:55 18:05 Temp 36.8 Pulse 69 61 58 82 Resp 18 18 18 18 B/P (MAP) 163/96 (118) 128/82 160/52 147/63 Pulse Ox 98 95 98 97 O2 Delivery Room Air Room Air Room Air Room Air Blood Pressure Mean: 118 Comment Sinus rhythm, nonspecific ST-T wave abnormality, 64 bpm, QRS duration 97 MS, QTc 400 MS Departure Communication (PCP) Patient presents ED with left arm pain. Started in the left shoulder and has migrated to her left hand. No trauma. No cervical neck pain. Negative Spurling sign. Denies headache, slurred speech, unilateral muscle weakness. She has appropriate strength of the left arm. Normal sensation. NIH is 0. EKG showed normal sinus rhythm without evidence of ST elevation or depression. Patient initial cardiac work-up was unremarkable. Patient had a stress test done on October 2020 that did not show any significant ischemic changes. Ejection fraction 75%. Patient had a atrial septal defect repair and a coronary artery bypass surgery in February 2008. Patient refused anything for pain which I recommended to try. She has no chest pain, shortness of breath, back pain. Nonspecific pain at this time. She states appears to be improving some but still has some discomfort. I did recommend a serial troponin. 3-hour troponin was negative. Symptoms are mild after 3 hour troponin. Did once again offer something for the pain. Recommend follow-up with PCP in 2 to 3 days for reevaluation.. If she starts to develop any type of chest pain or shortness of immediately return back to ED Impression Primary Impression: Arm pain Disposition: 01 HOME, SELF-CARE Condition: Stable Departure-Patient Inst. Decision time for Depature: 17:56 Referrals: YOLETTE ALVAREZ DO (PCP/Family) Primary Care Physician Patient Instructions: Chest Pain (DC) GALILEO SILVA Dec 25, 2021 14:25
[2021-12-25] MEDS ORDERED: ASPIRIN 81 MG CHEW (CHILDREN'S ASA) PO ONE (14:30)
[2021-12-25 14:40] LABS: BASOPHILS # (AUTO) 0.1 10^3/uL (0.0-0.1); BASOPHILS % (AUTO) 1 % (0-10); EOSINOPHILS # (AUTO) 0.2 10^3/uL (0.0-0.3); EOSINOPHILS % (AUTO) 2 % (0-10); HEMATOCRIT 43 % (35-52); HEMOGLOBIN 14.5 g/dL (11.5-16.0); LYMPHOCYTES # (AUTO) 1.3 10^3/uL (1.0-4.0); LYMPHOCYTES % (AUTO) 18 % (12-44); MEAN CORPUSCULAR HEMOGLOBIN 28 pg (25-34); MEAN CORPUSCULAR HGB CONC 34 g/dL (32-36); MEAN CORPUSCULAR VOLUME 84 fL (80-99); MEAN PLATELET VOLUME 11.4 fL (9.0-12.2); MONOCYTES # (AUTO) 0.5 10^3/uL (0.0-1.0); MONOCYTES % (AUTO) 7 % (0-12); NEUTROPHILS # (AUTO) 5.1 10^3/uL (1.8-7.8); NEUTROPHILS % (AUTO) 72 % (42-75); PLATELET COUNT 217 10^3/uL (130-400); WHITE BLOOD COUNT 7.1 10^3/uL (4.3-11.0)
[2021-12-25 14:46] LABS: INR 0.9 (0.8-1.4); PROTHROMBIN TIME PATIENT 12.2 SEC (12.2-14.7)
--- NOTE | 2021-12-25 14:51 | Diagnostic Imaging Report ---
INDICATION: Chest pain. Frontal chest obtained at 2:43 p.m. FINDINGS: There is post-sternotomy change. The heart is normal in size. There is unchanged elevation of the left hemidiaphragm. There is no focal infiltrate or pneumothorax or pleural fluid. IMPRESSION: No acute process in the chest and no change compared to 01/02/2021. Dictated by: Dictated on workstation # [id number]
[2021-12-25 14:53] LABS: ALBUMIN 4.2 GM/DL (3.2-4.5); BILIRUBIN,TOTAL 0.5 MG/DL (0.1-1.0); CALCIUM 9.9 MG/DL (8.5-10.1); CREATININE SERUM 0.95 MG/DL (0.60-1.30); MAGNESIUM 1.7 MG/DL (1.6-2.4); POTASSIUM 3.9 MMOL/L (3.6-5.0); TOTAL PROTEIN 7.3 GM/DL (6.4-8.2)
[2021-12-25 18:05] VITALS: BP 147/63
== END 2021-12-25 18:05 | disposition home or self-care (01) ==
LOC: EDUNIT# 13:54 → ER 13:56
DX: M79.602 Pain in left arm (principal); M25.512 Pain in left shoulder; Z95.1 Presence of aortocoronary bypass graft; Z98.890 Other specified postprocedural states; Z86.79 Personal history of other diseases of the circulatory system
CPT/HCPCS: 36415; 71045; 80053; 83735; 83874; 83880; 84484; 85025; 85610; 85730; 93041

== ENCOUNTER → 2022-01-23 | Outpatient (CLI) | payer BC ==
--- NOTE | 2022-01-23 13:15 | Diagnostic Imaging Report ---
INDICATION: Pain. EXAMINATION: Cervical spine, 01/23/2022. FINDINGS: Four views of the cervical spine. Visualized lung apices are clear with postoperative changes noted along the sternum. Alignment of the spine is preserved with no subluxations or compression fractures appreciated. There is intervertebral disc space narrowing at C6-C7. Adjacent facet hypertrophy noted. Prevertebral soft tissues are unremarkable. IMPRESSION: 1. Degenerative findings with no acute osseous abnormality. Dictated by: Dictated on workstation # [id number]
--- NOTE | 2022-01-23 13:15 | Diagnostic Imaging Report ---
INDICATION: Shoulder pain and neck pain. EXAMINATION: Left shoulder from 01/23/2022. FINDINGS: Three views of the shoulder. There is narrowing and spurring at the acromioclavicular joint. No acute fractures or dislocations appreciated. There is postoperative change in the visualized chest with the left lung clear. IMPRESSION: 1. Degenerative findings with no acute osseous abnormality. Dictated by: Dictated on workstation # [id number]
== END ==
LOC: RAD 10:24
PROVIDERS: ATTEND Family Medicine
DX: M19.012 Primary osteoarthritis, left shoulder (principal); M47.22 Other spondylosis with radiculopathy, cervical region
CPT/HCPCS: 72040; 73030

== ENCOUNTER → 2022-03-16 | Outpatient (RCR) | payer BC | END | disposition home or self-care (01) | PROVIDERS: ATTEND Family Medicine | DX: M54.12 Radiculopathy, cervical region (principal); I10 Essential (primary) hypertension; E11.9 Type 2 diabetes mellitus without complications ==

== ENCOUNTER 2022-03-25 15:45 | Outpatient (RCR) | payer BC | END 2022-04-15 | disposition home or self-care (01) | PROVIDERS: ATTEND Family Medicine | DX: M54.12 Radiculopathy, cervical region (principal); E11.9 Type 2 diabetes mellitus without complications; I11.9 Hypertensive heart disease without heart failure ==

== ENCOUNTER → 2022-11-06 | Outpatient (CLI) | payer BC ==
[~2022-11-06] MED LIST changes: -LOSA100T57 PO; +LOSA100T58 PO
--- NOTE | 2022-11-06 09:42 | Diagnostic Imaging Report ---
INDICATION: Routine screening. COMPARISON is made with prior mammograms from 11/05/2021 and 11/04/2020. 2-D and 3-D bilateral screening mammography was performed with CAD. Scattered fibroglandular densities are identified bilaterally. The parenchymal pattern is stable. There are scattered benign calcifications bilaterally. There are biopsy clips in the right breast. No mass or malignant-appearing microcalcifications are seen. Axillae are unremarkable. IMPRESSION: BI-RADS Category 2 No mammographic features suspicious for malignancy are identified. ACR BI-RADS Category 2: Benign findings. Result letter will be mailed to the patient. Note: At least 10% of breast cancer is not imaged by mammography. Dictated by: Dictated on workstation # [id number]
== END ==
LOC: RAD 07:35
PROVIDERS: ATTEND Family Medicine
DX: Z12.31 Encounter for screening mammogram for malignant neoplasm of breast (principal)
CPT/HCPCS: 77063; 77067